=== PATIENT | male | born 1960 | race Caucasian/White ===

== ENCOUNTER 2017-10-18 19:23 | Emergency (ER) | payer SELFPAY ==
[~2017-10-18] VITALS: Ht 180.3 cm; Wt 93.8 kg
[2017-10-18 19:27] VITALS: TEMP 36.4; Ht 180.3 cm; Wt 93.8 kg
[2017-10-18] MEDS ORDERED: SODIUM CHLORIDE 0.9% 1000ML 1,000 ML IV STA (19:39)
[2017-10-18] MEDS ORDERED: OPTIRAY 320 IV PRN (19:45)
[2017-10-18 20:06] LABS: BASO % 0.5 %; BASO ABS # 0.05 K/uL (0-0.2); EOS % 7.2 %; HEMATOCRIT 42.2 % (42-52); IG# 0.06 K/uL (0.00-0.02); LYMPH % 30.1 %; LYMPH ABS # 2.91 K/uL (1.2-3.4); MEAN CELL VOLUME 80.4 fL (80-100); MEAN CORPUSCULAR HEMOGLOBIN 28.6 pg (25-34); MEAN CORPUSCULAR HGB CONC 35.5 g/dl (32-36); MEAN PLATELET VOLUME 9.8 fL (7.4-10.4); MONO % 8.3 %; NEUT % 53.3 %; NEUT ABS # 5.14 K/uL (1.4-6.5); PLATELET COUNT 253 K/uL (130-400); RED CELL DISTRIBUTION WIDTH CV 12.4 % (11.5-14.5); WHITE BLOOD COUNT 9.66 K/uL (4.8-10.8)
--- NOTE | 2017-10-18 20:20 | DIAGNOSTIC IMAGING REPORT ---
CHEST ONE VIEW PORTABLE HISTORY: Generalized abdominal pain. COMPARISON: None. FINDINGS: The lungs are clear. Cardiac silhouette is normal in size. No pleural effusions. No pneumothorax. IMPRESSION: No acute process. Electronically signed by: Franko Drake M.D. 10/18/2017 8:18 PM Dictated Date/Time: 10/18/2017 8:17 PM
[2017-10-18 20:29] LABS: ALBUMIN 3.2 gm/dl (3.4-5.0); ALKALINE PHOSPHATASE 80 U/L (45-117); ALT/SGPT 19 U/L (12-78); AST/SGOT 8 U/L (15-37); BLOOD UREA NITROGEN 12 mg/dl (7-18); CALCIUM 9.1 mg/dl (8.5-10.1); CARBON DIOXIDE 30 mmol/L (21-32); GLUCOSE 313 mg/dl (70-99); LIPASE 98 U/L (73-393); POTASSIUM 3.8 mmol/L (3.5-5.1); SODIUM 132 mmol/L (136-145); TOTAL PROTEIN 7.8 gm/dl (6.4-8.2)
--- NOTE | 2017-10-18 21:54 | DIAGNOSTIC IMAGING REPORT ---
CHEST CTA for PULMONARY ARTERIES CT DOSE: 1344.97 mGy.cm HISTORY: Generalized abdominal pain. Shortness of breath. TECHNIQUE: Multiaxial CT images of the chest were performed following the intravenous administration of contrast to evaluate the pulmonary arteries. Maximal intensity projection images were also obtained. A dose lowering technique was utilized adhering to the principles of ALARA. COMPARISON STUDY: Chest 10/18/2017. FINDINGS: Normal caliber thoracic aorta with no evidence for dissection. No pleural or pericardial effusions. The heart is normal in size. No filling defects within the pulmonary arteries to suggest pulmonary embolus. No acute fractures within the visualized osseous structures. No pneumothorax. Mild motion artifact. The central airways are patent. The lungs are clear. No mediastinal or hilar lymphadenopathy. IMPRESSION: No evidence for pulmonary embolus. Electronically signed by: Franko Drake M.D. 10/18/2017 9:53 PM Dictated Date/Time: 10/18/2017 9:44 PM
--- NOTE | 2017-10-18 22:06 | DIAGNOSTIC IMAGING REPORT ---
ABDOMEN AND PELVIS CT WITH IV CONTRAST CT DOSE: HISTORY: Generalized abdominal pain, nausea, sob TECHNIQUE: Multiaxial CT images of the abdomen and pelvis were performed following the use of intravenous contrast. A dose lowering technique was utilized adhering to the principles of ALARA. COMPARISON STUDY: None. FINDINGS: The lung bases are clear. No pneumoperitoneum. No pneumatosis. Posterior decompression and fusion at L4-5. Old central compression deformity at L2. Multiple small gallstones. No gallbladder wall thickening. Punctate calcifications within the right hepatic lobe. The spleen, adrenal glands, and pancreas are unremarkable. The kidneys enhance normally. No hydronephrosis. Mild bladder wall thickening and 1.5 cm hypodense focus within the right side of the prostate gland. The bladder is mildly distended. Colonic diverticulosis. No bowel wall thickening or obstruction. The appendix is not identified and reportedly surgically absent. The prostate gland is mildly enlarged. IMPRESSION: 1. No bowel wall thickening or obstruction. 2. Colonic diverticulosis. 3. The bladder is mildly distended. There is associated bladder wall thickening. This could be due to chronic outlet obstruction from the prostate gland or a cystitis. Recommend correlation with urinalysis. 4. A 1.5 cm hypodense focus within the right side the prostate gland. This is indeterminate but could represent benign prostatic hypertrophy, a prostate lesion, or possibly a small abscess. Clinical correlation recommended. Nonemergent urology consultation is also recommended. 5. Cholelithiasis. Electronically signed by: Franko Drake M.D. 10/18/2017 10:05 PM Dictated Date/Time: 10/18/2017 9:54 PM
[2017-10-18] MEDS ORDERED: CIPROFLOXACIN 500MG HOME PACK PO ONE (22:15)
[2017-10-18] MEDS ORDERED: CIPROFLOXACIN 500 MG TAB PO STA (22:15)
[2017-10-18] MEDS ORDERED: CIPR-255 PO (22:22)
[2017-10-18 22:42] VITALS: BP 124/76; PULSE 76; O2SAT 98
--- NOTE | 2017-10-18 22:47 | EMERGENCY ROOM VISIT NOTE ---
History Report prepared by Andrew: Kayla Burt Under the Supervision of: Dr. Damaso Crowley M.D. First contact with patient: 19:29 Chief Complaint: ABDOMINAL PAIN Stated Complaint: SEVERE PAIN AROUND RIB CAGE History of Present Illness The patient is a 57 year old male who presents to the Emergency Room with complaints of intermittent abdominal pain for the past 5 weeks. He rates his discomfort as a 3/10 in severity. He has experienced dysuria but denies any hematuria. He states he will occasionally experience difficulty breathing. He has been increasingly fatigued recently and states "I can't stand the sun". He has been eating and drinking normally. He denies any recent falls or trauma. The patient notes he still has his gallbladder but no longer has his appendix. 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 A total of ten systems were reviewed and were otherwise negative. Past Medical & Surgical Medical Problems: (1) Diabetes mellitus Surgical Problems: (1) History of appendectomy Social History Smoking Status: Never Smoker Drug Use: none Marital Status: Housing Status: lives with family Occupation Status: employed Current/Historical Medications Scheduled Ciprofloxacin Hcl (Cipro), 1 TAB PO BID Allergies Coded Allergies: Penicillins (Verified Allergy, Intermediate, "I got really really sick.", 10/18/17) Physical Exam Vital Signs Date Time Temp Pulse Resp B/P (MAP) Pulse Ox O2 Delivery O2 Flow Rate FiO2 10/18/17 21:25 69 18 134/82 97 Room Air 10/18/17 19:27 36.4 87 17 97/65 97 Room Air Physical Exam GENERAL: Awake, alert, well-appearing, in no distress HENT: Normocephalic, atraumatic. Oropharynx unremarkable. EYES: Normal conjunctiva. Sclera non-icteric. NECK: Supple. No nuchal rigidity. RESPIRATORY: Clear to auscultation. No wheezes. Normal respiratory effort. CARDIAC: Normal rate. Normal rhythm. Extremities warm and well perfused. GI: Soft, non-distended. Diffuse moderate abdominal tenderness to palpation. No guarding. No masses. RECTAL: Deferred. MUSCULOSKELETAL: Atraumatic. Chest examination reveals no tenderness. There is no CVA tenderness to palpation. LOWER EXTREMITIES: Calves are equal size bilaterally and non-tender. No edema NEURO: Normal sensorium. No sensory or motor deficits noted. No facial droop. SKIN: Warm and dry. No rash or jaundice noted. Medical Decision & Procedures ER Provider Diagnostic Interpretation: Radiology results as stated below per my review and radiologist interpretation: CHEST ONE VIEW PORTABLE HISTORY: Generalized abdominal pain. COMPARISON: None. FINDINGS: The lungs are clear. Cardiac silhouette is normal in size. No pleural effusions. No pneumothorax. IMPRESSION: No acute process. Electronically signed by: Franko Drake M.D. 10/18/2017 8:18 PM CHEST CTA for PULMONARY ARTERIES CT DOSE: 1344.97 mGy.cm HISTORY: Generalized abdominal pain. Shortness of breath. TECHNIQUE: Multiaxial CT images of the chest were performed following the intravenous administration of contrast to evaluate the pulmonary arteries. Maximal intensity projection images were also obtained. A dose lowering technique was utilized adhering to the principles of ALARA. COMPARISON STUDY: Chest 10/18/2017. FINDINGS: Normal caliber thoracic aorta with no evidence for dissection. No pleural or pericardial effusions. The heart is normal in size. No filling defects within the pulmonary arteries to suggest pulmonary embolus. No acute fractures within the visualized osseous structures. No pneumothorax. Mild motion artifact. The central airways are patent. The lungs are clear. No mediastinal or hilar lymphadenopathy. IMPRESSION: No evidence for pulmonary embolus. Electronically signed by: Franko Drake M.D. 10/18/2017 9:53 PM ABDOMEN AND PELVIS CT WITH IV CONTRAST CT DOSE: HISTORY: Generalized abdominal pain, nausea, sob TECHNIQUE: Multiaxial CT images of the abdomen and pelvis were performed following the use of intravenous contrast. A dose lowering technique was utilized adhering to the principles of ALARA. COMPARISON STUDY: None. FINDINGS: The lung bases are clear. No pneumoperitoneum. No pneumatosis. Posterior decompression and fusion at L4-5. Old central compression deformity at L2. Multiple small gallstones. No gallbladder wall thickening. Punctate calcifications within the right hepatic lobe. The spleen, adrenal glands, and pancreas are unremarkable. The kidneys enhance normally. No hydronephrosis. Mild bladder wall thickening and 1.5 cm hypodense focus within the right side of the prostate gland. The bladder is mildly distended. Colonic diverticulosis. No bowel wall thickening or obstruction. The appendix is not identified and reportedly surgically absent. The prostate gland is mildly enlarged. IMPRESSION: 1. No bowel wall thickening or obstruction. 2. Colonic diverticulosis. 3. The bladder is mildly distended. There is associated bladder wall thickening. This could be due to chronic outlet obstruction from the prostate gland or a cystitis. Recommend correlation with urinalysis. 4. A 1.5 cm hypodense focus within the right side the prostate gland. This is indeterminate but could represent benign prostatic hypertrophy, a prostate lesion, or possibly a small abscess. Clinical correlation recommended. Nonemergent urology consultation is also recommended. 5. Cholelithiasis. Electronically signed by: Franko Drake M.D. 10/18/2017 10:05 PM Laboratory Results 10/18/17 19:51 Red Blood Count 5.25, Mean Corpuscular Volume 80.4, Mean Corpuscular Hemoglobin 28.6, Mean Corpuscular Hemoglobin Concent 35.5, Mean Platelet Volume 9.8, Neutrophils (%) (Auto) 53.3, Lymphocytes (%) (Auto) 30.1, Monocytes (%) (Auto) 8.3, Eosinophils (%) (Auto) 7.2, Basophils (%) (Auto) 0.5, Neutrophils # (Auto) 5.14, Lymphocytes # (Auto) 2.91, Monocytes # (Auto) 0.80, Eosinophils # (Auto) 0.70, Basophils # (Auto) 0.05 10/18/17 19:51 Test 10/18/17 19:51 10/18/17 19:59 White Blood Count 9.66 K/uL (4.8-10.8) Red Blood Count 5.25 M/uL (4.7-6.1) Hemoglobin 15.0 g/dL (14.0-18.0) Hematocrit 42.2 % (42-52) Mean Corpuscular Volume 80.4 fL (80-100) Mean Corpuscular Hemoglobin 28.6 pg (25-34) Mean Corpuscular Hemoglobin Concent 35.5 g/dl (32-36) Platelet Count 253 K/uL (130-400) Mean Platelet Volume 9.8 fL (7.4-10.4) Neutrophils (%) (Auto) 53.3 % Lymphocytes (%) (Auto) 30.1 % Monocytes (%) (Auto) 8.3 % Eosinophils (%) (Auto) 7.2 % Basophils (%) (Auto) 0.5 % Neutrophils # (Auto) 5.14 K/uL (1.4-6.5) Lymphocytes # (Auto) 2.91 K/uL (1.2-3.4) Monocytes # (Auto) 0.80 K/uL (0.11-0.59) Eosinophils # (Auto) 0.70 K/uL (0-0.5) Basophils # (Auto) 0.05 K/uL (0-0.2) RDW Standard Deviation 36.0 fL (36.4-46.3) RDW Coefficient of Variation 12.4 % (11.5-14.5) Immature Granulocyte % (Auto) 0.6 % Immature Granulocyte # (Auto) 0.06 K/uL (0.00-0.02) Anion Gap 5.0 mmol/L (3-11) Est Creatinine Clear Calc Drug Dose 107.2 ml/min Estimated GFR () 110.3 Estimated GFR (Non- 95.1 BUN/Creatinine Ratio 13.7 (10-20) Calcium Level 9.1 mg/dl (8.5-10.1) Total Bilirubin 0.5 mg/dl (0.2-1) Direct Bilirubin 0.1 mg/dl (0-0.2) Aspartate Amino Transf (AST/SGOT) 8 U/L (15-37) Alanine Aminotransferase (ALT/SGPT) 19 U/L (12-78) Alkaline Phosphatase 80 U/L (45-117) Troponin I < 0.015 ng/ml (0-0.045) Total Protein 7.8 gm/dl (6.4-8.2) Albumin 3.2 gm/dl (3.4-5.0) Lipase 98 U/L (73-393) Beta-Hydroxybutyric Acid 1.34 mg/dL (0.2-2.81) Urine Color YELLOW Urine Appearance CLOUDY (CLEAR) Urine pH 5.5 (4.5-7.5) Urine Specific [place] 1.022 (1.000-1.030) Urine Protein NEG (NEG) Urine Glucose (UA) 3+ (NEG) Urine Ketones NEG (NEG) Urine Occult Blood TRACE (NEG) Urine Nitrite POS (NEG) Urine Bilirubin NEG (NEG) Urine Urobilinogen NEG (NEG) Urine Leukocyte Esterase MODERATE (NEG) Urine WBC (Auto) >30 /hpf (0-5) Urine RBC (Auto) 0-4 /hpf (0-4) Urine Hyaline Casts (Auto) 0 /lpf (0-5) Urine Epithelial Cells (Auto) 10-20 /lpf (0-5) Urine Bacteria (Auto) 2+ (NEG) Urine Yeast (Auto) (NONE PRSENT) Laboratory results reviewed by me Medications Administered Medications (Trade) Dose Ordered Sig/Pilar Route Start Time Stop Time Status Last Admin Dose Admin Sodium Chloride 1,000 ml @ 999 mls/hr Q1H1M STAT IV 10/18/17 19:39 10/18/17 20:39 DC 10/18/17 20:11 999 MLS/HR ECG Per My Interpretation Indication: abdominal pain Rate (beats per minute): 77 Rhythm: normal sinus Findings: no ectopy, other (right axis deviation, no ST segment elevation) Comparison ECG Date: no prior available ED Course 1932: The patient was evaluated in room B4. A complete history and physical exam was performed. 1938: NSS 1000 ml @ 999 mls/hr IV. 2214: I reevaluated the patient. He is resting comfortably. I discussed his results and discharge instructions and he verbalized complete understanding and agreement. 5: Cipro 500 mg 1 homepack PO, Cipro 500 mg PO. Medical Decision Triage Nursing notes reviewed. The patient's presentation and history were concerning for chest pain and abdominal pain. Differential diagnosis: Etiologies such as appendicitis, diverticulitis, PUD, biliary pathology, UTI, pancreatitis, obstruction, mesenteric ischemia, aortic pathology, infections, inflammatory bowel disease, renal colic, cardiac ischemia, aortic dissection, pulmonary embolism, pneumonia, pneumothorax, musculoskeletal, infections, pericarditis, myocarditis, esophageal rupture, gastrointestinal, as well as others were entertained. Presents with 5 weeks of intermittent upper abdominal pain radiating to his lower abdomen. Prior appendectomy. Fairly tender on exam. Also complains of intermittent chest pain and tightness with some shortness of breath at times. EKG and troponin were completed. CT of the chest along CT the abdomen pelvis to complete evaluate for possible PE versus intra-abdominal complication such as perforation or diverticulitis. Labs for hepatitis and pancreatitis were sent. Also has urinary symptoms but do not believe this represents nephrolithiasis. UA was completed. No leukocytosis. Hyperglycemia with pseudohyponatremia. Negative lipase liver functions and troponin. No evidence of significant acidosis; doubt HHS. No evidence of sepsis. Troponin negative. Chest x-ray unremarkable. Urinalysis appears positive for infection. Urine culture sent. Will start on Cipro; complicated UTI and ?prostate involvement. No PE and no pneumonia. Given negative troponin and the prolonged course doubt this is ACS. CT abdomen pelvis shows some mild bladder changes with enlargement of the prostate with a possible hypodense focus in the right side of the prostate possibly BPH or lesion or small abscess. Given the patient's presentation again will do a course of Cipro. We will have him follow-up as an outpatient with urology. He and informed of findings and importance of follow up. Discussed return criteria. Believe this is likely why he is experiencing his symptoms. PCP follow up for hyperglycemia and informed him that he likely needs medication for control now. Medication Reconcilliation Current Medication List: was personally reviewed by me Blood Pressure Screening Patient's blood pressure: Normal blood pressure Blood pressure disposition: Did not require urgent referral Impression Primary Impression: UTI (urinary tract infection) Additional Impressions: Hyperglycemia Hyperglycemia due to type 2 diabetes mellitus Scribe Attestation The scribe's documentation has been prepared under my direction and personally reviewed by me in its entirety. I confirm that the note above accurately reflects all work, treatment, procedures, and medical decision making performed by me. Departure Information Dispostion Home / Self-Care Prescriptions Ciprofloxacin Hcl (CIPRO) 500 Mg Tab 1 TAB PO BID for 14 Days, #28 TAB Prov: Damaso Crowley M.D. 10/18/17 Referrals Kaushik Camp M.D. (PCP) Patient Instructions [facility], UTI Additional Instructions Please utilize prescribed antibiotic to help with your urinary tract infection. He will need to follow-up with the urologist to discuss your enlarged prostate and possible small abscess or lesion there. This should be done within the next 1-2 weeks. Would recommend follow-up with your primary care doctor to discuss your blood sugar and diabetes control given your significant elevation here in the next 1 week for this. Long-term multiple problems can occur is if your diabetes is uncontrolled this may cause health complications. 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
--- NOTE | 2017-10-21 15:52 | Pharmacy Progress Note ---
ED Pharmacist Culture FollowUp Date of Service: Oct 21, 2017. Called patient regarding urine culture, growing MSSA. Patient was prescribed ciprofloxacin and will switch to bactrim. Prescription for Bactrim DS BID x 10 days called to [facility] at the patient's request. Case discussed with Dr. Crowley, who is the prescribing provider.
--- NOTE | 2017-10-21 15:57 | Pharmacy Progress Note ---
ED Pharmacist Culture FollowUp Date of Service: Oct 21, 2017.
== END 2017-10-18 22:43 | disposition home or self-care (01) ==
LOC: C.EDB 19:25
DX: N30.00 Acute cystitis without hematuria (principal); E11.65 Type 2 diabetes mellitus with hyperglycemia; R06.00 Dyspnea, unspecified; R07.9 Chest pain, unspecified; R10.84 Generalized abdominal pain; R53.83 Other fatigue; Z90.89 Acquired absence of other organs; Z88.0 Allergy status to penicillin